=== PATIENT | male | born 1980 | race Caucasian/White ===

== ENCOUNTER 2018-11-24 07:04 | Emergency (ER) | payer BC ==
[~2018-11-24] VITALS: Ht 177.8 cm; Wt 88.9 kg
[2018-11-24 07:12] VITALS: Ht 177.8 cm; Wt 88.9 kg
[2018-11-24 08:47] VITALS: BP 105/50
== END 2018-11-24 08:47 | disposition home or self-care (01) ==
LOC: ED 07:04
DX: J02.0 Streptococcal pharyngitis (principal)
CPT/HCPCS: J0561; J7512